=== PATIENT | male | born 1975 | race Caucasian/White ===

== ENCOUNTER 2019-07-17 10:58 | Emergency (ER) | payer OTHER ==
[~2019-07-17] VITALS: Ht 175.3 cm; Wt 81.7 kg
[~2019-07-17 10:58] MED LIST: DOXY100 PO; HYDACE5 PO; NAPR500 PO
[2019-07-17] MEDS ORDERED: PERIDEX15 ML MM (11:46)
[2019-07-17] MEDS ORDERED: CLIN300 PO (11:46)
== END 2019-07-17 11:58 | disposition home or self-care (01) ==
LOC: ER 10:58
DX: K04.7 Periapical abscess without sinus (principal); Z88.0 Allergy status to penicillin; Z79.899 Other long term (current) drug therapy; F17.200 Nicotine dependence, unspecified, uncomplicated
CPT/HCPCS: 41800; 96372-59; 99282-25; J1885

== ENCOUNTER 2019-11-25 08:39 | Emergency (ER) | payer OTHER ==
[~2019-11-25] VITALS: Ht 175.3 cm; Wt 77.1 kg
[~2019-11-25 08:39] MED LIST changes: +CLIN300 PO; +PERIDEX15 ML MM
[2019-11-25] MEDS ORDERED: KETO10 PO (09:48)
[2019-11-25] MEDS ORDERED: Ventolin/Prove6.7 GM INH (10:20)
== END 2019-11-25 10:29 | disposition home or self-care (01) ==
LOC: ER 08:39
DX: S22.41XA Multiple fractures of ribs, right side, initial encounter for closed fracture (principal); R05 Cough; J45.909 Unspecified asthma, uncomplicated; Z88.0 Allergy status to penicillin; F17.210 Nicotine dependence, cigarettes, uncomplicated; X58.XXXA Exposure to other specified factors, initial encounter
CPT/HCPCS: 71046; 96372; 99283-25; J1885

== ENCOUNTER → 2024-07-29 | Outpatient (CLI) | payer OTHER ==
[~2024-07-29] MED LIST changes: +KETO10 PO; +Ventolin/Prove6.7 GM INH
[2024-07-29 18:58] LABS: BASOPHILS ABSOLUTE AUTO 0.05 K/mm3 (0.00-0.23); BASOPHILS PERCENT AUTO 1 % (0-2); EOSINOPHILS ABSOLUTE AUTO 0.15 K/mm3 (0.00-0.68); EOSINOPHILS PERCENT AUTO 2 % (0-6); Hemoglobin 13.6 g/dL (13.5-17.5); IMMATURE GRAN ABSOLUTE AUTO 0.01 K/mm3 (0.00-0.10); IMMATURE GRAN PERCENT AUTO 0 % (0-1); LYMPHOCYTES ABSOLUTE AUTO 2.15 K/mm3 (0.84-5.20); LYMPHOCYTES PERCENT AUTO 30 % (21-46); MONOCYTES ABSOLUTE AUTO 0.61 K/mm3 (0.16-1.47); MONOCYTES PERCENT AUTO 9 % (4-13); Mean Corpuscular HGB 29.6 pg (26.0-34.0); Mean Corpuscular HGB Conc 32.4 g/dL (31.5-36.5); Mean Corpuscular Volume 91 fL (80-100); Mean Platelet Volume 10.2 fL (9.1-12.4); NEUTROPHILS ABSOLUTE AUTO 4.15 K/mm3 (1.96-9.15); NEUTROPHILS PERCENT AUTO 58 % (41-73); Platelet Count 353 K/mm3 (150-400); RDW Standard Deviation 43.9 fL (35.1-46.3); White Blood Cell Count 7.12 K/mm3 (4.00-11.30)
[2024-07-29 19:26] LABS: Albumin, Blood 3.6 g/dL (3.4-5.0); Albumin/Globulin Ratio 0.8 (0.8-1.8); Bilirubin, Total 0.3 mg/dL (0.1-1.0); Bun/Creatinine Ratio 15.7 (12.0-20.0); Calcium, Blood 9.9 mg/dL (8.5-10.1); Creatinine, Blood 0.89 mg/dL (0.60-1.20); Globulin, Blood 4.3 g/dL (2.2-4.0); Potassium, Blood 4.1 mmol/L (3.5-5.5); Total Protein, Blood 7.9 g/dL (6.4-8.2)
== END | disposition home or self-care (01) ==
LOC: LAB 17:25 → LAB SHORT 17:25
PROVIDERS: Family Medicine
DX: D64.9 Anemia, unspecified (principal); E87.6 Hypokalemia
CPT/HCPCS: 80053; 85025